=== PATIENT | female | born 1955 | race African-American/Black ===

== ENCOUNTER 2020-07-06 11:28 | Emergency (ER) | payer BC, MEDICARE ==
[~2020-07-06 11:28] MED LIST: Iopamidol 370 76% 100 ML VIAL ONE
[2020-07-06] MEDS ORDERED: Sodium Chloride 0.9% 1,000 ML ONE ×2 (12:31→15:11)
[2020-07-06] MEDS ORDERED: Ondansetron PF 4 MG/2 ML Vial ONE (12:31)
[2020-07-06 13:16] LABS: #Basophils 0.1 thou/uL (0.0-0.2); #Eosinphils 0.1 thou/uL (0.0-0.7); #Lymphocytes 2.7 thou/uL (1.20-3.40); #Monocytes 1.4 thou/uL (0.11-0.59); #Neutrophils 7.2 thou/uL (1.40-6.50); %Basophils 0.8 % (0.0-1.0); %Eosinophils 0.5 % (0.0-10.0); %Lymphocytes 23.4 % (21.0-51.0); %Monocytes 12.4 % (0.0-10.0); %Neutrophils 62.9 % (42.0-75.0); Hemoglobin 12.9 g/dL (12.0-16.0); Mean Corpuscular HGB CONC 31.8 g/dL (32.0-36.0); Mean Corpuscular Hemoglobin 29.6 pg (27.0-31.0); Mean Platelet Volume 5.7 fL (7.4-10.4); Platelet Count 275 thou/uL (130-400); RBC Distribution Width 12.9 % (11.5-14.5); Red Blood Cell (RBC) Count 4.35 mill/uL (4.20-5.40); White Blood Cell (WBC) Count 11.5 thou/uL (4.8-10.8)
[2020-07-06 13:51] LABS: ALT (SGPT) 19 U/L (8-55); AST (SGOT) 20 U/L (5-34); Albumin 3.7 g/dL (3.4-4.8); Alkaline Phosphatase 108 U/L (40-110); Anion Gap 18 mmol/L (10-20); BUN (Urea Nitrogen) 38 mg/dL (9.8-20.1); Bilirubin, Total 0.8 mg/dL (0.2-1.2); CK (CPK) 88 U/L (29-168); Calc. Creatinine Clearance 0 mL/min (70-130); Calcium 8.9 mg/dL (7.8-10.44); Carbon Dioxide 24 mmol/L (23-31); Chloride 101 mmol/L (98-107); Estimated GFR-MDRD 38; Globulin 3.4 g/dL (2.4-3.5); Glucose 92 mg/dL (80-115); Lipase 12 U/L (8-78); Protein, Total 7.1 g/dL (6.0-8.3); Sodium 139 mmol/L (136-145)
[2020-07-06 14:09] LABS: CKMB 1.7 ng/mL (0-6.6)
--- NOTE | 2020-07-06 14:47 | CT ---
CT abdomen and pelvis with IV contrast HISTORY: Abdomen pain. FINDINGS: Nonspecific 0.3 cm subpleural nodule at the left posterior lung base. Small cysts arise fro m the cortex of the kidneys. Solid organs are intact. A large amount of fat and a loop of nondilated small bowel extend through an umbilical hernia. Immedi ately superior to it, and favored to represent a separate herniation, a partially gas-filled loop of transverse colon herniates into the subcutaneous tissues. The colon beyond this point is decompres sed, although its exact exit from the hernia is not discernible. The right colon is markedly distended with gas and liquid. There is mild distention of small bowel loops throughout the abdomen. Abdominal fat protrudes through the left lower quadrant anterior abdominal wall immediately lateral t o the rectus abdominis muscle. There is subtle stranding in the fat. No bowel within the hernia. Urinary bladder is incompletely distended. Left hip prosthesis partially visualized. There are prominent degenerative changes of the lumbar spin e including multilevel significant central canal stenoses. Gas within a disc herniation extends into the left L5-S1 neural foramen. IMPRESSION : High-grade bowel obstruction, favored to be at the transverse colon anterior abdominal wall herniatio n just above the level of the umbilicus. An umbilical hernia, favored to be separate, contains a large amount of abdominal fat and small amount of small bowel. Left anterior abdominal wall spigelian hernia with mildly inflamed fat but no bowel. Left lateral herniation of the intervertebral disc at the lumbosacral junction, into the neural chidi en. Clinical correlation regarding the left L5 dermatome is required.
[2020-07-06] MEDS ORDERED: HYDROmorphone 0.5 MG/0.5 ML SYRINGE ONE (17:02)
[2020-07-06] MEDS ORDERED: Fentanyl 100 MCG/2 ML VIAL ONE (17:02)
[2020-07-06] MEDS ORDERED: Phenylephrine 10 MG/ML VIAL ONE (17:03)
== END 2020-07-06 16:12 | disposition short-term general hospital (02) ==
LOC: MADERS 11:28
DX: K56.609 Unspecified intestinal obstruction, unspecified as to partial versus complete obstruction (principal); K46.9 Unspecified abdominal hernia without obstruction or gangrene; E78.5 Hyperlipidemia, unspecified; I10 Essential (primary) hypertension; Z79.899 Other long term (current) drug therapy
CPT/HCPCS: 74177; 80053; 82550; 82553; 83690; 84484; 85025; 93005; 94760; 96361; 96374; J1170; J2370; J2405; J3010; J7050; Q9967

== ENCOUNTER 2021-01-11 10:54 | Emergency (ER) | payer MEDICARE | END 2021-01-11 12:55 | disposition home or self-care (01) | LOC: MADERS 10:54 | DX: M25.552 Pain in left hip (principal); M25.562 Pain in left knee ==

== ENCOUNTER 2021-06-27 11:44 | Emergency (ER) | payer MEDICARE | END 2021-06-27 12:53 | disposition home or self-care (01) | LOC: MADERS 11:44 | DX: M79.10 Myalgia, unspecified site (principal); T50.B95A Adverse effect of other viral vaccines, initial encounter; T50.Z95A Adverse effect of other vaccines and biological substances, initial encounter; I10 Essential (primary) hypertension; E78.5 Hyperlipidemia, unspecified | CPT/HCPCS: 99283 ==

== ENCOUNTER 2021-11-17 12:08 | Emergency (ER) | payer MEDICARE | END 2021-11-17 13:10 | disposition home or self-care (01) | LOC: MADERS 12:08 | DX: S80.01XA Contusion of right knee, initial encounter (principal); E78.5 Hyperlipidemia, unspecified; I10 Essential (primary) hypertension; D64.9 Anemia, unspecified; M19.90 Unspecified osteoarthritis, unspecified site; Z79.899 Other long term (current) drug therapy; W18.30XA Fall on same level, unspecified, initial encounter ==

== ENCOUNTER 2022-04-20 13:18 | Emergency (ER) | payer OTHER, MEDICARE ==
[2022-04-20] MEDS ORDERED: Ibuprofen 400 MG TAB ONE (14:06)
[2022-04-20] MEDS ORDERED: traMADol HCl 50 MG TAB ONE (14:06)
== END 2022-04-20 16:25 | disposition home or self-care (01) ==
LOC: MADERS 13:18
DX: S00.83XA Contusion of other part of head, initial encounter (principal); S20.211A Contusion of right front wall of thorax, initial encounter; S80.12XA Contusion of left lower leg, initial encounter; S80.11XA Contusion of right lower leg, initial encounter; S80.01XA Contusion of right knee, initial encounter; E78.5 Hyperlipidemia, unspecified; I10 Essential (primary) hypertension; D64.9 Anemia, unspecified; V43.52XA Car driver injured in collision with other type car in traffic accident, initial encounter
CPT/HCPCS: 70450; 71045

== ENCOUNTER 2022-04-23 13:30 | Emergency (ER) | payer OTHER, MEDICARE | END 2022-04-23 14:00 | disposition home or self-care (01) | LOC: MADERS 13:30 | DX: S20.02XA Contusion of left breast, initial encounter (principal); S20.01XA Contusion of right breast, initial encounter; S80.01XA Contusion of right knee, initial encounter; S80.11XA Contusion of right lower leg, initial encounter; R60.0 Localized edema; I10 Essential (primary) hypertension; E78.5 Hyperlipidemia, unspecified; D64.9 Anemia, unspecified; M19.90 Unspecified osteoarthritis, unspecified site; V89.2XXA Person injured in unspecified motor-vehicle accident, traffic, initial encounter | CPT/HCPCS: 99283 ==

== ENCOUNTER 2024-02-02 12:35 | Emergency (ER) | payer MEDICARE, OTHER ==
[2024-02-02 13:10] LABS: Bilirubin Negative (Negative); Blood, Urine Negative (Negative); Glucose, Urine (Dipstick) Negative (Negative); Ketone, Urine Negative (Negative); Leukocyte Negative (Negative); Nitrite Negative (Negative); Protein, Urine (Dipstick) Negative (Neg-Trace); Specific Gravity, Urine 1.025 (1.005-1.030); Urobilinogen 0.2 mg/dL (Less than 2)
[2024-02-02] MEDS ORDERED: Sodium Chloride 0.9% 500 ML ONE (13:12)
[2024-02-02] MEDS ORDERED: Ketorolac Tromethamine 30 MG (1 mL) VIAL ONE (13:12)
[2024-02-02 13:21] LABS: #Basophils 0.1 thou/uL (0.0-0.2); #Eosinphils 0.2 thou/uL (0.0-0.7); #Lymphocytes 2.6 thou/uL (1.20-3.40); #Monocytes 0.7 thou/uL (0.11-0.59); #Neutrophils 5.5 thou/uL (1.40-6.50); %Basophils 0.8 % (0.0-1.0); %Eosinophils 2.1 % (0.0-10.0); %Lymphocytes 28.6 % (21.0-51.0); %Monocytes 7.6 % (0.0-10.0); %Neutrophils 60.9 % (42.0-75.0); Hematocrit 32.2 % (36.0-47.0); Hemoglobin 10.1 g/dL (12.0-16.0); Mean Corpuscular HGB CONC 31.4 g/dL (32.0-36.0); Mean Corpuscular Hemoglobin 29.6 pg (27.0-31.0); Mean Corpuscular Volume 94.2 fl (78.0-98.0); Mean Platelet Volume 6.1 fL (7.4-10.4); Platelet Count 259 10x3/uL (130-400); RBC Distribution Width 13.3 % (11.5-14.5); Red Blood Cell (RBC) Count 3.42 mill/uL (4.20-5.40); White Blood Cell (WBC) Count 9.1 10x3/uL (4.8-10.8)
[2024-02-02 13:22] LABS: Bacteria/HPF Rare-Few HPF (None Seen); CAUTI Indications for Culture Pelvic or flank pain; Clarity Hazy (Clear); RBC/HPF 0-3 HPF (0-3); Squamous Epithelial 0-3 HPF (0-3); WBC/HPF 0-3 HPF (0-3)
[2024-02-02 13:24] LABS: Urine Culture Reflex No No
[2024-02-02 13:35] LABS: ALT (SGPT) 13 U/L (8-55); AST (SGOT) 19 U/L (5-34); Albumin 3.7 g/dL (3.4-4.8); Alkaline Phosphatase 105 U/L (40-110); Anion Gap 13 mmol/L (10-20); BUN (Urea Nitrogen) 22 mg/dL (9.8-20.1); Bilirubin, Total 0.6 mg/dL (0.2-1.2); Calc. Creatinine Clearance 0 mL/min (70-130); Carbon Dioxide 25 mmol/L (23-31); Chloride 107 mmol/L (98-107); Estimated GFR 76; Glucose 109 mg/dL (80-115); Lipase 18 U/L (8-78); Protein, Total 6.7 g/dL (5.8-8.1); Sodium 141 mmol/L (136-145)
== END 2024-02-02 14:43 | disposition home or self-care (01) ==
LOC: MADERS 12:35
DX: R10.9 Unspecified abdominal pain (principal); D64.9 Anemia, unspecified; I10 Essential (primary) hypertension; E78.5 Hyperlipidemia, unspecified; Z79.899 Other long term (current) drug therapy; Z55.6 Problems related to health literacy
CPT/HCPCS: 74177; 80053; 81001; 83690; 85025; 96361; 96374; J1885; J7030